=== PATIENT | female | born 1965 | race American Indian/Alaskan Native ===

== ENCOUNTER 2018-12-27 03:45 | Emergency (ER) | payer OTHER ==
[2018-12-27] MEDS ORDERED: PROVENTIL IH ONE ×3 (03:54→04:36)
[2018-12-27] MEDS ORDERED: DUONEB *Not for PRN Use IH ONE ×2 (03:54→04:01)
[2018-12-27] MEDS ORDERED: BENADRYL PO ONE (04:36)
[2018-12-27] MEDS ORDERED: DECADRON IM ONE (04:36)
[2018-12-27] MEDS ORDERED: IBUPROFEN PO ONE (04:36)
[2018-12-27 04:40] VITALS: BP 149/89
--- NOTE | 2018-12-27 05:06 | XRay Report ---
PROCEDURE: XR CHEST ROUTINE 2V TECHNIQUE: PA and lateral views of the chest were submitted. HISTORY: cough COMPARISONS: None FINDINGS: The heart size and mediastinum appear normal. The lungs are negative for infiltrates or congestion. P leural fluid is not seen. The skeletal structures do not show any acute changes. IMPRESSION: No acute cardiopulmonary process.. This document is electronically signed by Brice Peterson MD., December 27 2018 05:04:16 AM ET
--- NOTE | 2018-12-27 05:10 | Emergency Department Report ---
ED Asthma HPI - General Chief Complaint: Adult Asthma Stated Complaint: ASTHMA Time Seen by Provider: 12/27/18 04:35 Source: patient Mode of arrival: Ambulatory Limitations: No Limitations - History of Present Illness Initial Comments: Patient is a 53-year-old female with history of asthma who presents for exacerbation of same for the past week symptoms are controlled with albuterol inhaler patient states sinus pressure and cough syrup for your pain there is no chest pain no diaphoresis no nausea vomiting no dizziness or lightheadedness MD Complaint: shortness of breath, wheezing Onset/Timin -: week(s) Asthma History: childhood onset Severity: moderate Context: none known Associated Symptoms: productive cough Treatments Prior to Arrival: inhaled bronchodilator - Related Data Current Asthma Therapy: inhaled bronchodilator Previous Rx's Medication Instructions Recorded Last Taken Type ALBUTEROL Inhaler(NF) [VENTOLIN 2 puff IH Q4H PRN #1 inha 12/27/18 Unknown Rx Inhaler(NF)] Azithromycin [Zithromax Z-ANDREA] 250 mg PO DAILY #6 tab 12/27/18 Unknown Rx Benzonatate [Tessalon Perles] 100 mg PO Q8HR #30 capsule 12/27/18 Unknown Rx Ibuprofen 800 mg PO TID PRN #30 tablet 12/27/18 Unknown Rx Allergies Allergy/AdvReac Type Severity Reaction Status Date / Time No Known Allergies Allergy Verified 12/27/18 03:58 ED Review of Systems ROS: Stated complaint: ASTHMA Other details as noted in HPI Constitutional: denies: chills, fever Eyes: denies: eye pain, eye discharge, vision change ENT: ear pain, throat pain, congestion Respiratory: cough, shortness of breath, wheezing Cardiovascular: denies: chest pain, palpitations Endocrine: no symptoms reported Gastrointestinal: denies: abdominal pain, nausea, vomiting, diarrhea Genitourinary: denies: urgency, dysuria, discharge Musculoskeletal: denies: back pain, joint swelling, arthralgia Skin: denies: rash, lesions Neurological: denies: headache, weakness, paresthesias Psychiatric: as per HPI Hematological/Lymphatic: denies: easy bleeding, easy bruising ED Past Medical Hx - Past Medical History Previous Medical History?: Yes Hx Asthma: Yes - Surgical History Past Surgical History?: Yes Additional Surgical History: partial hysterectomy. R rotator cuff repair - Social History Smoking Status: Never Smoker Substance Use Type: Alcohol - Medications Home Medications: Home Medications Medication Instructions Recorded Confirmed Last Taken Type ALBUTEROL Inhaler(NF) [VENTOLIN 2 puff IH Q4H PRN #1 inha 12/27/18 Unknown Rx Inhaler(NF)] Azithromycin [Zithromax Z-ANDREA] 250 mg PO DAILY #6 tab 12/27/18 Unknown Rx Benzonatate [Tessalon Perles] 100 mg PO Q8HR #30 capsule 12/27/18 Unknown Rx Ibuprofen 800 mg PO TID PRN #30 tablet 12/27/18 Unknown Rx ED Physical Exam - General Limitations: No Limitations General appearance: alert, in no apparent distress - Head Head exam: Present: atraumatic, normocephalic - Eye Eye exam: Present: normal appearance, PERRL, EOMI Pupils: Present: normal accommodation - ENT ENT exam: Present: normal orophraynx, mucous membranes moist, TM's normal bilaterally, normal external ear exam, other (bila maxillary sinus pain and pressure to palpation no erythema no swelling ) - Expanded ENT Exam Expanded Ear exam: Present: normal external inspection Mouth exam: Absent: trismus Throat exam: Positive: tonsillar erythema, tonsillomegaly, other (uvula midline no exudate no lesions no stridor ). Negative: tonsillar exudate, R peritonsillar mass, L peritonsillar mass - Neck Neck exam: Present: normal inspection, full ROM, lymphadenopathy. Absent: tenderness - Respiratory Respiratory exam: Present: normal lung sounds bilaterally, wheezes (mild exp wheezing bilat upper lobes ), chest wall tenderness (right latera chest wall tenderness ). Absent: respiratory distress, rhonchi, stridor, accessory muscle use, decreased breath sounds, prolonged expiratory - Cardiovascular Cardiovascular Exam: Present: regular rate, normal rhythm, normal heart sounds. Absent: systolic murmur, diastolic murmur, rubs, gallop - GI/Abdominal GI/Abdominal exam: Present: soft, normal bowel sounds. Absent: tenderness, rebound, bruit, hernia - Rectal Rectal exam: Present: deferred - Extremities Exam Extremities exam: Present: normal inspection - Back Exam Back exam: Present: normal inspection, full ROM. Absent: tenderness, rash noted - Neurological Exam Neurological exam: Present: alert, oriented X3, CN II-XII intact, normal gait, reflexes normal - Psychiatric Psychiatric exam: Present: normal affect, normal mood - Skin Skin exam: Present: warm, dry, intact, normal color. Absent: rash ED Course Vital Signs 12/27/18 12/27/18 12/27/18 03:56 04:35 04:38 Temperature 97.4 F L Pulse Rate 96 H 92 H Respiratory 26 H 22 Rate Blood Pressure 221/127 Blood Pressure 149/89 [Left] O2 Sat by Pulse 96 99 Oximetry ED Medical Decision Making - Radiology Data Radiology results: report reviewed, image reviewed Ordering Physician: PJ BOLANOS NP Date of Service: 12/27/18 Procedure(s): XR chest routine 2V Accession Number(s): [id number] cc: PJ BOLANOS NP Fluoro Time In Minutes: PROCEDURE: XR CHEST ROUTINE 2V TECHNIQUE: PA and lateral views of the chest were submitted. HISTORY: cough COMPARISONS: None FINDINGS: The heart size and mediastinum appear normal. The lungs are negative for i nfiltrates or congestion. Pleural fluid is not seen. The skeletal structures do not show any acute changes. IMPRESSION: No acute cardiopulmonary process.. This document is electronically signed by [place] Peterson MD., December 27 2018 05:04:16 AM ET Transcribed By: RB Dictated By: [place] PETERSON MD Electronically Authenticated By: [place] PETERSON MD Signed Date/Time: 12/27/18505 DD/ 2 TD/TT: 12/27/18452 - Medical Decision Making Chest x-ray no infiltrates or opacities this is likely bronchitis with asthma exacerbation plan DC home with Z-Andrea prednisone albuterol Tessalon Perles and ibuprofen patient given referral to PCP Na[facility]. Follow up in 2 days patient return to emergency department should symptoms worsen patient verbalized agr eement and understanding of discharge plan patient DC'd home in stable condition at this time Critical care attestation.: If time is entered above; I have spent that time in minutes in the direct care of this critically ill patient, excluding procedure time. ED Disposition Clinical Impression: Bronchitis, Upper respiratory disease Disposition: DC-01 TO HOME OR SELFCARE Is pt being admited?: No Does the pt Need Aspirin: No Condition: Stable Instructions: Chronic Bronchitis (ED) Prescriptions: Ibuprofen 800 mg PO TID PRN #30 tablet PRN Reason: pain Benzonatate [Tessalon Perles] 100 mg PO Q8HR #30 capsule ALBUTEROL Inhaler(NF) [VENTOLIN Inhaler(NF)] 2 puff IH Q4H PRN #1 inha PRN Reason: shortness of breath wheezing Azithromycin [Zithromax Z-ANDREA] 250 mg PO DAILY #6 tab Referrals: ILANA WYATT MD [Primary Care Provider] - 3-5 Days
== END 2018-12-27 07:04 | disposition home or self-care (01) ==
LOC: ED 03:45
DX: J40 Bronchitis, not specified as acute or chronic (principal); J06.9 Acute upper respiratory infection, unspecified
CPT/HCPCS: 71046; 94640; 96372; 99283; J1100